=== PATIENT | female | born 2000 | race Caucasian/White ===

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

== ENCOUNTER → 2022-07-12 | Outpatient (CLI) | payer OTHER ==
[2022-07-12 12:33] LABS: Partial Thromboplastin Time 25.2 sec (22.0-30.0); Prothrombin Time 10.6 sec (9.0-12.0)
[2022-07-12 18:22] LABS: Basophils # (A) 0.05 X 10*3/uL (0.00-0.10); Basophils % (A) 0.8 %; Eosinophils # (A) 0.02 X 10*3/uL (0.04-0.35); Eosinophils % (A) 0.3 %; HCT 42.2 % (37.2-46.3); HGB 14.1 g/dL (12.0-15.0); Immature Grans, Automated 0.2 %; Lymphocytes # (A) 1.09 X 10*3/uL (0.90-5.00); Lymphocytes % (A) 18.2 %; MCH 30.9 pg (27.0-32.0); MCHC 33.4 g/dL (32.0-37.0); MCV 92.5 fL (80.0-97.0); Mean Platelet Volume 11.8 fL (9.5-12.2); Monocytes # (A) 1.09 X 10*3/uL (0.20-1.00); Monocytes % (A) 18.2 %; NRBC Per 100 WBC 0 /100 WBCS (0.0-0.0); Neutrophils # (A) 3.73 X 10*3/uL (1.80-7.70); Neutrophils % (A) 62.3 %; Platelet Count 234 X 10*3/uL (140-440); RBC 4.56 X 10*6/uL (4.10-5.20); RDW 13.1 % (11.5-14.5); WBC 5.99 X 10*3/uL (4.50-10.00)
[2022-07-12 18:49] LABS: Erythrocyte Sedimentation Rate 7 mm/Hr (0-20)
[2022-07-12 19:17] LABS: ALT 23 U/L (8-44); AST 21 U/L (13-35); African American GFR (CKD) 122.7 (60.0-200.0); Albumin/Globulin Ratio 1.97 (1.60-3.17); Alkaline Phosphatase 63 U/L (41-126); BUN/Creat Ratio 10.05 Ratio (12.00-20.00); Calcium 10.1 mg/dL (8.7-10.3); Carbon Dioxide 29.7 mmol/L (20.0-27.5); Chloride 104 mmol/L (96-109); Chol/HDL Ratio 2.45 Ratio; Globulin 2.6 g/dL (1.6-3.3); Glucose 84 mg/dL (70-110); LDH 168 U/L (120-246); LDL Cholesterol,Calculated 54.5 mg/dL (0.0-131.0); Non-African American GFR(CKD) 105.9 (60.0-200.0); Potassium 4.5 mmol/L (3.5-5.5); Sodium 143 mmol/L (135-145); Total Protein 7.6 g/dL (6.2-8.2); VLDL Calculation 11.16 mg/dL (5.00-40.00)
== END | disposition home or self-care (01) ==
LOC: LABWHC1 10:31
PROVIDERS: ATTEND Family Medicine
DX: G43.909 Migraine, unspecified, not intractable, without status migrainosus (principal); R29.5 Transient paralysis
CPT/HCPCS: 36415; 80053; 80061; 81241; 83090; 83615; 84146; 85025; 85303; 85610; 85613; 85652; 85730

== ENCOUNTER → 2022-07-13 | Outpatient (CLI) | payer OTHER ==
--- NOTE | 2022-07-14 02:58 | MR ---
EXAMINATION [facility]: [facility] DATE OF EXAM: 07/13/2022 COMPARISON: None HISTORY: Sudden left sided weakness and numbness, involuntary head twitching, seizure and head injury . CONTRAST: Standard multiplanar, multisequence MRI departmental protocol images were obtained without contrast a nd with 4.5 mL intravenous Gadavist gadolinium contrast. Multiplanar multi echo imaging of the brain performed without and with the IV contrast gadolinium the re are MR angiographic images obtained of the neck. FINDINGS: Diffusion images show no evidence of an acute infarct. Ventricles and sulci appear normal. There is n o mass effect or midline shift. No sign of intracranial hemorrhage. No evidence of cerebral edema. Th e calvarium appears normal. The corpus callosum appears normal. Brainstem is intact. No evidence of a posterior fossa mass. Sella turcica appears normal. No evidence of orbital mass. Contrast images show no pathologic intracranial enhancement. There is normal enhancement of the venou s sinuses. Cerebellum appears normal. No evidence of posterior fossa mass. There is normal branching pattern of the great vessels of the aortic arch. There is arterial flow in the subclavian arteries bilaterally. There is arterial flow in the common internal and external carot id arteries bilaterally. There is arterial flow in both vertebral arteries. No evidence of aneurysm o r dissection. No evidence of hemodynamic stenosis. There is wide patency of the carotid artery bifurc ations. IMPRESSION: Normal MRI scan of the brain. Normal MR angiogram of the neck.
== END | disposition home or self-care (01) ==
LOC: RADMRIMAIN 08:09
PROVIDERS: ATTEND Family Medicine
DX: R29.5 Transient paralysis (principal)
CPT/HCPCS: 70549; 70553; A9585

== ENCOUNTER 2023-06-09 08:54 | Day surgery (SDC) | payer OTHER ==
[~2023-06-09 08:54] MED LIST: SODIUM CHLORIDE 0.9% 1,000 ML IV SCH
[2023-06-09 09:11] VITALS: BP 120/83; PULSE 93; RESP 18; TEMP 98
--- NOTE | 2023-06-09 13:45 | P.EPPROC ---
- EP Procedure Note Electrophysiology Procedure Note: Diagnosis Recurrent syncope and dizzy spells for one year Twelve-lead EKG shows sinus rhythm normal ND narrow QRS normal ST segments normal QT interval Tilt table test per protocol Baseline blood pressure 111/67 mmHg Baseline 170 beats a minute Patient was tilted upright at an angle of 70 per protocol immediate increase in heart rate 221 beats a minute and then settled down at around 110 beats a minute No change in blood pressure She felt dizzy off and on in waves. Numbness in the right side of the face. During the tilt she had sudden onset of dizziness and a warm feeling. At that time, heart rate went up 146 beats a minute. Her blood pressure was elevated 176/92 mmHg She felt hot and dizzy off and on At no point did she develop any evidence for neurocardiogenic syncope Impression Normal 12-lead EKG Postural tachycardia syndrome without evidence for secondary neurocardiogenic phenomenon
== END 2023-06-09 11:17 | disposition home or self-care (01) ==
LOC: CATHEP 08:54
PROVIDERS: ATTEND Internal Medicine Clinical Cardiac Electrophysiology
DX: R55 Syncope and collapse (principal); Z79.899 Other long term (current) drug therapy
CPT/HCPCS: 81025; 93660

== ENCOUNTER 2024-08-03 21:27 | Emergency (ER) | payer OTHER ==
--- NOTE | 2024-08-03 21:52 | ED ---
General Adult HPI - General Chief complaint: Syncope Stated complaint: Tachycardia Time Seen by Provider: 08/03/24 21:28 Source: patient Mode of arrival: EMS Limitations: no limitations - History of Present Illness Initial comments: Dictation was produced using [employer] dictation software. please excuse any grammatical, word or spelling errors. Chief Complaint: 23-year-old female with history of POTS presents with presyncope History of Present Illness: Patient is a 23-year-old female had approximately 1 hour prior to arrival experienced presyncopal episode. She states she has a history of POTS. She had a POTS flareup 2 months ago states that today she had a similar event where she stood up quickly. She states she felt a little faint had to lower herself. Patient did not fall or strike her head. Patient states that she feels slightly lightheaded at the bedside. Patient denies any other comorbidities. The ROS documented in this emergency department record has been reviewed and confirmed by me. Those systems with pertinent positive or negative responses have been documented in the HPI. All other systems are other negative and/or n oncontributory. - Related Data Home Medications Medication Instructions Recorded Confirmed Folic Acid 1 mg PO DAILY 06/05/23 06/05/23 Vit B12(Unk) 1 tab PO DAILY 06/05/23 06/05/23 diphenhydrAMINE HCL [Benadryl 25 - 50 mg PO DIRECTED 06/05/23 06/05/23 Allergy] Allergies Allergy/AdvReac Type Severity Reaction Status Date / Time roldan Allergy Swelling Verified 08/03/24 21:34 roldan flavor Allergy Swelling Verified 08/03/24 21:34 egg Allergy Swelling Verified 08/03/24 21:34 gluten Allergy Nausea & Verified 08/03/24 21:34 Vomiting & Diarrhea lactose Allergy Swelling Verified 08/03/24 21:34 latex Allergy Rash/Hives Verified 06/05/23 15:50 orange Allergy Swelling Verified 08/03/24 21:34 orange juice [[place]] Allergy Swelling Verified 08/03/24 21:34 Pepper Allergy Anaphylaxis Verified 08/03/24 21:34 pineapple Allergy Swelling Verified 08/03/24 21:34 rice Allergy Anaphylaxis Verified 08/03/24 21:34 soy Allergy Swelling Verified 08/03/24 21:34 Review of Systems ROS Statement: Those systems with pertinent positive or pertinent negative responses have been documented in the HPI. ROS Other: All systems not noted in ROS Statement are negative. Past Medical History Past Medical History: No Reported History Additional Past Medical History / Comment(s): mulitple food and environmental allergies, POTS, chronic migranes History of Any Multi-Drug Resistant Organisms: None Reported Past Surgical History: No Surgical Hx Reported Past Anesthesia/Blood Transfusion Reactions: No Reported Reaction Past Psychological History: Anxiety, Depression Smoking Status: Never smoker Past Alcohol Use History: None Reported Past Drug Use History: None Reported General Exam - General Exam Comments Initial Comments: PHYSICAL EXAM: General Impression: Alert and oriented x3, not in acute distress HEENT: Normocephalic atraumatic, extra-ocular movements intact, pupils equal and reactive to light bilaterally, mucous membranes moist. Cardiovascular: Heart regular rate and rhythm Chest: Able to complete full sentences, no retractions, no tachypnea Abdomen: abdomen soft, non-tender, non-distended, no organomegaly Musculoskeletal: Pulses present and equal in all extremities, no peripheral edema Motor: no focal deficits noted Neurological: CN II-XII grossly intact, no focal motor or sensory deficits noted Skin: Intact with no visualized rashes Psych: Normal affect and mood Limitations: no limitations Course Vital Signs 08/03/24 08/03/24 08/03/24 21:27 22:06 22:43 Temperature 98.6 F Pulse Rate 105 H 103 H Pulse Rate [ 99 Recreation Coordinator ] Respiratory 16 15 Rate Blood Pressure 113/74 103/71 O2 Sat by Pulse 100 100 Oximetry EKG Findings - EKG Comments: EKG Findings:: My EKG interpretation: Ventricular rate 109, sinus tachycardia,. Interval 116, QRS 104, QTc 377. No HI prolongation, no QTC prolongation, no ST or T-wave changes noted. Overall, this EKG is unremarkable Medical Decision Making - Medical Decision Making Was pt. sent in by a medical professional or institution (, PA, PUBLIC SPACE ATTENDANT, urgent care, hospital, or halfway...) When possible be specific @ -No Did you speak to anyone other than the patient for history (EMS, parent, family, police, friend...)? What history was obtained from this source @ -No Did you review nursing and triage notes (agree or disagree)? Why? @ -I reviewed and agree with nursing and triage notes Were old charts reviewed (outside hosp., previous admission, EMS record, old EKG, old radiological studies, urgent care reports/EKG's, halfway records)? Report findings @ -No old charts were reviewed Differential Diagnosis (chest pain, altered mental status, abdominal pain women, abdominal pain men, vaginal bleeding, musculoskeletal, weakness, fever, dyspnea, syncope, headache, dizziness, GI bleed, back pain, seizure, CVA, palpatations, mental health)? @ -Differential Syncope: Valvular disease, hypertrophic cardiomyopathy, pulmonary embolism, tamponade, tachycardia, bradycardia, [place], hypovolemia, hemorrhage, dissection, anemia, intracranial hemorrhage, seizure, hypoglycemia, carbon monoxide poisoning, this is not meant to be an all-inclusive list. EKG interpreted by me (3pts min.). @ -As above X-rays interpreted by me (1pt min.). @ -None done CT interpreted by me (1pt min.). @ -None done U/S interpreted by me (1pt. min.). @ -None done What testing was considered but not performed or refused? (CT, X-rays, U/S, labs)? Why? @ -None What meds were considered but not given or refused? Why? @ -None Was smoking cessation discussed for >3mins.? @ -No Were there social determinants of health that impacted care today? How? (Homelessness, low income, unemployed, alcoholism, drug addiction, transportation, low edu. Level, literacy, decrease access to med. care, correction, rehab)? @ -No Was there de-escalation of care discussed even if they declined (Discuss DNR or withdrawal of care, Hospice)? DNR status @ -No What co-morbidities impacted this encounter? (DM, HTN, Smoking, COPD, CAD, Cancer, CVA, ARF, Chemo, Hep., AIDS, mental health diagnosis, sleep apnea, morbid obesity)? @ -None Was patient admitted / discharged? Hospital course, mention meds given and route, prescriptions, significant lab abnormalities, going to OR and other pertinent info. @ -23-year-old female presents emergency department with presyncopal symptoms. Vital signs upon arrival are within acceptable limits she has history of POTS. Patient well-appearing at the bedside. She is stable on physical examination. Laboratory evaluation is unremarkable. Troponin is negative. Electrolytes unremarkable. Patient be discharged with instruction to follow-up with primary care doctor observed emergency department for approximately 2 hours. Reevaluated at 11:30 PM [place] stable to condition. Did you discuss the management of the patient with other professionals (professionals i.e. , PA, PUBLIC SPACE ATTENDANT, lab, RT, psych nurse, social media designer, cable television program director, teacher, command and control officer, sample case porter)? Give summary @ -No Was critical care preformed (if so, how long)? @ -No Undiagnosed new problem with uncertain prognosis? @ -No Drug Therapy requiring intensive monitoring for toxicity (Heparin, Nitro, Insulin, Cardizem)? @ -No Were any procedures done? @ -No Diagnosis/symptom? Acute, or Chronic, or Acute on Chronic? Uncomplicated (without systemic symptoms) or Complicated (systemic symptoms)? @ -Presyncope Side effects of treatment? @ -No Exacerbation, Progression, or Severe Exacerbation? @ -No Poses a threat to life or bodily function? How? (Chest pain, [place], [place], pneumonia, PE, COPD, DKA, ARF, appy, cholecystitis, CVA, Diverticulitis, Homicidal, Suicidal, threat to staff... and all critical care pts) @ -No - Lab Data Result diagrams: 08/03/24 21:54 08/03/24 21:54 Lab Results 08/03/24 08/03/24 08/03/24 Range/Units 21:54 21:54 21:54 WBC 8.1 (3.8-10.6) k/uL RBC 3.65 L (3.80-5.40) m/uL Hgb 11.7 (11.4-16.0) gm/dL Hct 35.9 (34.0-46.0) % MCV 98.4 (80.0-100.0) fL MCH 32.0 (25.0-35.0) pg MCHC 32.5 (31.0-37.0) g/dL RDW 12.8 (11.5-15.5) % Plt Count 193 (150-450) k/uL MPV 8.4 Neutrophils % 62 % Lymphocytes % 22 % Monocytes % 12 % Eosinophils % 1 % Basophils % 0 % Neutrophils # 5.0 (1.3-7.7) k/uL Lymphocytes # 1.8 (1.0-4.8) k/uL Monocytes # 1.0 (0-1.0) k/uL Eosinophils # 0.0 (0-0.7) k/uL Basophils # 0.0 (0-0.2) k/uL Sodium 137 (137-145) mmol/L Potassium 3.7 (3.5-5.1) mmol/L Chloride 107 (98-107) mmol/L Carbon Dioxide 25 (22-30) mmol/L Anion Gap 5 mmol/L BUN 7 (7-17) mg/dL Creatinine 0.63 (0.52-1.04) mg/dL Est GFR (CKD-EPI)AfAm >90 (>60 ml/min/1.73 sqM) Est GFR (CKD-EPI)NonAf >90 (>60 ml/min/1.73 sqM) Glucose 89 (74-99) mg/dL Calcium 9.5 (8.4-10.2) mg/dL Magnesium 1.9 (1.6-2.3) mg/dL Troponin I <0.012 (0.000-0.034) ng/mL Disposition Clinical Impression: Pre-syncope Disposition: HOME SELF-CARE Condition: Good Instructions (If sedation given, give patient instructions): Near Syncope (ED) Is patient prescribed a controlled substance at d/c from ED?: No Referrals: Claudia Wills MD [Primary Care Provider] - 1-2 days Time of Disposition: 23:32
[2024-08-03 22:01] LABS: Basophils % (A) 0 %; Eosinophils % (A) 1 %; HCT 35.9 % (34.0-46.0); HGB 11.7 gm/dL (11.4-16.0); Lymphocytes # (A) 1.8 k/uL (1.0-4.8); Lymphocytes % (A) 22 %; MCHC 32.5 g/dL (31.0-37.0); MCV 98.4 fL (80.0-100.0); Mean Platelet Volume 8.4; Monocytes % (A) 12 %; Neutrophils % (A) 62 %; Platelet Count 193 k/uL (150-450); RBC 3.65 m/uL (3.80-5.40); RDW 12.8 % (11.5-15.5); WBC 8.1 k/uL (3.8-10.6)
[2024-08-03 22:09] LABS: African American GFR (CKD) >90 (>60 ml/min/1.73 sqM); Anion Gap 5 mmol/L; Blood Urea Nitrogen 7 mg/dL (7-17); Calcium 9.5 mg/dL (8.4-10.2); Carbon Dioxide 25 mmol/L (22-30); Chloride 107 mmol/L (98-107); Glucose 89 mg/dL (74-99); Magnesium 1.9 mg/dL (1.6-2.3); Non-African American GFR(CKD) >90 (>60 ml/min/1.73 sqM); Potassium 3.7 mmol/L (3.5-5.1); Sodium 137 mmol/L (137-145)
[2024-08-04 00:05] VITALS: BP 103/70; PULSE 96; RESP 18; TEMP 98.2
== END 2024-08-04 00:05 | disposition home or self-care (01) ==
LOC: EC 21:27
CPT/HCPCS: 36415; 80048; 83735; 84484; 85025; 93005; 99284

== ENCOUNTER 2024-08-14 22:57 | Emergency (ER) | payer OTHER ==
[2024-08-14 23:13] LABS: Glucose,Whole Blood 91 mg/dL (70-110)
--- NOTE | 2024-08-14 23:14 | ED ---
Dizziness HPI - General Source: patient, EMS, RN notes reviewed Mode of arrival: EMS Limitations: no limitations <Anayeli Escalante - Last Filed: 08/15/24 04:27> <Akbar Francois - Last Filed: 08/15/24 05:48> - General Chief Complaint: Syncope Stated Complaint: Syncope Time Seen by Provider: 08/14/24 23:13 - History of Present Illness Initial Comments: 23-year-old female presenting with chief complaint of syncopal episode. Patient has history of POTS and states that she felt herself going into a POTS episode tonight. She felt her heart racing and she was having some chest discomfort. States that she normally passes out with these episodes. She is feeling generally weak as well. She admits to some upper abdominal discomfort, particularly in the right upper quadrant. Has been intermittent. No nausea or vomiting. No fevers. No cough, congestion, sore throat. Denies any head injury. No lower extremity swelling or oral contraceptive use. (Anayeli Escalante) - Related Data Home Medications Medication Instructions Recorded Confirmed Folic Acid 1 mg PO DAILY 06/05/23 06/05/23 Vit B12(Unk) 1 tab PO DAILY 06/05/23 06/05/23 diphenhydrAMINE HCL [Benadryl 25 - 50 mg PO DIRECTED 06/05/23 06/05/23 Allergy] Allergies Allergy/AdvReac Type Severity Reaction Status Date / Time roldan Allergy Swelling Verified 08/14/24 23:08 roldan flavor Allergy Swelling Verified 08/14/24 23:08 egg Allergy Swelling Verified 08/14/24 23:08 gluten Allergy Nausea & Verified 08/14/24 23:08 Vomiting & Diarrhea lactose Allergy Swelling Verified 08/14/24 23:08 latex Allergy Rash/Hives Verified 08/14/24 23:08 orange Allergy Swelling Verified 08/14/24 23:08 orange juice [[place]] Allergy Swelling Verified 08/14/24 23:08 Pepper Allergy Anaphylaxis Verified 08/14/24 23:08 pineapple Allergy Swelling Verified 08/14/24 23:08 rice Allergy Anaphylaxis Verified 08/14/24 23:08 soy Allergy Swelling Verified 08/14/24 23:08 Review of Systems ROS Other: All systems not noted in ROS Statement are negative. <Anayeli Escalante - Last Filed: 08/15/24 04:27> ROS Other: All systems not noted in ROS Statement are negative. <Akbar Francois - Last Filed: 08/15/24 05:48> ROS Statement: Those systems with pertinent positive or pertinent negative responses have been documented in the HPI. Past Medical History Past Medical History: No Reported History Additional Past Medical History / Comment(s): mulitple food and environmental allergies, POTS, chronic migranes History of Any Multi-Drug Resistant Organisms: None Reported Past Surgical History: No Surgical Hx Reported Past Anesthesia/Blood Transfusion Reactions: No Reported Reaction Past Psychological History: Anxiety, Depression Smoking Status: Never smoker Past Alcohol Use History: None Reported Past Drug Use History: None Reported <Anayeli Escalante - Last Filed: 08/15/24 04:27> General Exam Limitations: no limitations General appearance: alert, in no apparent distress Head exam: Present: atraumatic, normocephalic, normal inspection Eye exam: Present: normal appearance, EOMI Neck exam: Present: normal inspection. Absent: meningismus Respiratory exam: Present: normal lung sounds bilaterally. Absent: respiratory distress, wheezes, rales, rhonchi, stridor Cardiovascular Exam: Present: normal rhythm, tachycardia, normal heart sounds. Absent: systolic murmur, diastolic murmur, rubs, gallop, clicks GI/Abdominal exam: Present: soft, tenderness. Absent: distended, guarding, rebound, rigid Neurological exam: Present: alert, oriented X3 Psychiatric exam: Present: normal affect, normal mood Skin exam: Present: warm, dry <Anayeli Escalante - Last Filed: 08/15/24 04:27> - General Exam Comments Initial Comments: Visual Physical Exam Vital signs reviewed General: Well-appearing, nontoxic, no acute distress. Head: Normocephalic, atraumatic Eyes: PERRLA, EOMI ENT: Airway patent Chest: Nonlabored breathing Skin: No visual rash, normal skin tone Neuro: Alert and oriented 3 Musculoskeletal: No gross abnormalities (Anayeli Escalante) Course Vital Signs 08/14/24 08/15/24 08/15/24 23:06 02:26 04:00 Temperature 98.2 F Pulse Rate 126 H 92 99 Respiratory 20 18 18 Rate Blood Pressure 110/73 118/85 112/71 O2 Sat by Pulse 100 100 100 Oximetry EKG Findings - EKG Comments: EKG Findings:: Sinus tachycardia with short NV interval. Ventricular rate 101. NV interval 117. QRS 111. QT 346. QTc 404. No ST deviation. <Anayeli Escalante - Last Filed: 08/15/24 04:27> Medical Decision Making - Lab Data Result diagrams: 08/15/24 00:00 08/15/24 00:00 <Anayeli Escalante - Last Filed: 08/15/24 04:27> - Lab Data Result diagrams: 08/15/24 00:00 08/15/24 00:00 <KeltonradhaAkbar - Last Filed: 08/15/24 05:48> - Medical Decision Making I performed the quick note portion of this visit, electronically signed Anayeli Escalante PA-C Was pt. sent in by a medical professional or institution (TALYA Holder, TIRE RETREADER, urgent care, hospital, or shelter...) When possible be specific @ -[No] Did you speak to anyone other than the patient for history (EMS, parent, family, police, friend...)? What history was obtained from this source @ -No Did you review nursing and triage notes (agree or disagree)? Why? @ -I reviewed and agree with nursing and triage notes Were old charts reviewed (outside hosp., previous admission, EMS record, old EKG, old radiological studies, urgent care reports/EKG's, shelter records)? Report findings @ -No old charts were reviewed Differential Diagnosis (chest pain, altered mental status, abdominal pain women, abdominal pain men, vaginal bleeding, weakness, fever, dyspnea, syncope, headache, dizziness, GI bleed, back pain, seizure, CVA, palpatations, mental health, musculoskeletal)? @ -[facility] Differential Chest Pain: Stable Angina, Unstable Angina, STEMI, NSTEMI Aortic Dissection, Pneumothorax, Musculoskeletal, Esophageal Spasm GERD, Cholecystitis, Pancreatitis, Zoster This is not meant to be an all-inclusive list. EKG interpreted by me (3pts min.). @ -As above X-rays interpreted by me (1pt min.). @ -Chest x-ray shows no acute process CT interpreted by me (1pt min.). @ -None done U/S interpreted by me (1pt. min.). @ -None done What testing was considered but not performed or refused? (CT, X-rays, U/S, labs)? Why? @ -None What meds were considered but not given or refused? Why? @ -None Did you discuss the management of the patient with other professionals (professionals i.e. , PA, TIRE RETREADER, lab, RT, psych nurse, case management social worker, fence installer foreman, t eacher, police commanding officer, rn field case manager)? Give summary @ -No Was smoking cessation discussed for >3mins.? @ -No Was critical care preformed (if so, how long)? @ -No Were there social determinants of health that impacted care today? How? (Homelessness, low income, unemployed, alcoholism, drug addiction, transportation, low edu. Level, literacy, decrease access to med. care, [facility], rehab)? @ -No Was there de-escalation of care discussed even if they declined (Discuss DNR or withdrawal of care, Hospice)? DNR status @ -No What co-morbidities impacted this encounter? (DM, HTN, Smoking, COPD, CAD, Cancer, CVA, ARF, Chemo, Hep., AIDS, mental health diagnosis, sleep apnea, morbid obesity)? @ -None Was patient admitted / discharged? Hospital course, mention meds given and route, prescriptions, significant lab abnormalities, going to OR and other pertinent info. @ -23-year-old female presenting with chief complaint of chest pain. States that she was having a POTS episode tonight. Workup is initiated in triage, patient is later brought back to a room and evaluated by myself. No leukocytos is or anemia. Lipase WNL. Negative hCG. Chest x-ray shows no acute process. Bilirubin 2.6 AST 59 ALT [address] is ordered and pending. Patient signed out to my attending Dr. Francois Undiagnosed new problem with uncertain prognosis? @ -No Drug Therapy requiring intensive monitoring for toxicity (Heparin, Nitro, Insulin, Cardizem)? @ -No Were any procedures done? @ -No Diagnosis/symptom? @ -Default Acute, or Chronic, or Acute on Chronic? @ -Default Uncomplicated (without systemic symptoms) or Complicated (systemic symptoms)? @ -Default Side effects of treatment? @ -No Exacerbation, Progression, or Severe Exacerbation? @ -No Poses a threat to life or bodily function? How? (Chest pain, [place], [place], pneumonia, PE, COPD, DKA, ARF, appy, cholecystitis, CVA, Diverticulitis, Homicidal, Suicidal, threat to staff... and all critical care pts) @ -No (Anayeli Escalante) - Lab Data Lab Results 08/14/24 08/15/24 08/15/24 Range/Units 23:11 00:00 00:00 WBC 10.0 (3.8-10.6) k/uL RBC 3.85 (3.80-5.40) m/uL Hgb 12.5 (11.4-16.0) gm/dL Hct 37.6 (34.0-46.0) % MCV 97.6 (80.0-100.0) fL MCH 32.3 (25.0-35.0) pg MCHC 33.1 (31.0-37.0) g/dL RDW 12.7 (11.5-15.5) % Plt Count 211 (150-450) k/uL MPV 8.8 Neutrophils % 70 % Lymphocytes % 13 % Monocytes % 14 % Eosinophils % 0 % Basophils % 0 % Neutrophils # 7.0 (1.3-7.7) k/uL Lymphocytes # 1.3 (1.0-4.8) k/uL Monocytes # 1.4 H (0-1.0) k/uL Eosinophils # 0.0 (0-0.7) k/uL Basophils # 0.0 (0-0.2) k/uL PT 11.2 (10.0-12.5) sec INR 1.0 (<1.2) APTT 23.8 (22.0-30.0) sec Sodium (137-145) mmol/L Potassium (3.5-5.1) mmol/L Chloride (98-107) mmol/L Carbon Dioxide (22-30) mmol/L Anion Gap mmol/L BUN (7-17) mg/dL Creatinine (0.52-1.04) mg/dL Est GFR (CKD-EPI)AfAm (>60 ml/min/1.73 sqM) Est GFR (CKD-EPI)NonAf (>60 ml/min/1.73 sqM) Glucose (74-99) mg/dL POC Glucose (mg/dL) 91 (70-110) mg/dL POC Glu [employer] Tutor ID Toure Matty Calcium (8.4-10.2) mg/dL Magnesium (1.6-2.3) mg/dL Total Bilirubin (0.2-1.3) mg/dL AST (14-36) U/L ALT (4-34) U/L Alkaline Phosphatase (38-126) U/L Troponin I (0.000-0.034) ng/mL Total Protein (6.3-8.2) g/dL Albumin (3.5-5.0) g/dL Lipase (23-300) U/L HCG, Qual 08/15/24 08/15/24 08/15/24 Range/Units 00:00 00:00 02:35 WBC (3.8-10.6) k/uL RBC (3.80-5.40) m/uL Hgb (11.4-16.0) gm/dL Hct (34.0-46.0) % MCV (80.0-100.0) fL MCH (25.0-35.0) pg MCHC (31.0-37.0) g/dL RDW (11.5-15.5) % Plt Count (150-450) k/uL MPV Neutrophils % % Lymphocytes % % Monocytes % % Eosinophils % % Basophils % % Neutrophils # (1.3-7.7) k/uL Lymphocytes # (1.0-4.8) k/uL Monocytes # (0-1.0) k/uL Eosinophils # (0-0.7) k/uL Basophils # (0-0.2) k/uL PT (10.0-12.5) sec INR (<1.2) APTT (22.0-30.0) sec Sodium 138 (137-145) mmol/L Potassium 3.6 (3.5-5.1) mmol/L Chloride 106 (98-107) mmol/L Carbon Dioxide 22 (22-30) mmol/L Anion Gap 10 mmol/L BUN 5 L (7-17) mg/dL Creatinine 0.64 (0.52-1.04) mg/dL Est GFR (CKD-EPI)AfAm >90 (>60 ml/min/1.73 sqM) Est GFR (CKD-EPI)NonAf >90 (>60 ml/min/1.73 sqM) Glucose 75 (74-99) mg/dL POC Glucose (mg/dL) (70-110) mg/dL POC Glu [employer] Tutor ID Calcium 9.2 (8.4-10.2) mg/dL Magnesium 1.9 (1.6-2.3) mg/dL Total Bilirubin 2.6 H (0.2-1.3) mg/dL AST 59 H (14-36) U/L ALT 128 H (4-34) U/L Alkaline Phosphatase 134 H (38-126) U/L Troponin I <0.012 (0.000-0.034) ng/mL Total Protein 6.7 (6.3-8.2) g/dL Albumin 4.5 (3.5-5.0) g/dL Lipase 53 (23-300) U/L HCG, Qual Not Detected Disposition <Anayeli Escalante - Last Filed: 08/15/24 04:27> Is patient prescribed a controlled substance at d/c from ED?: No <Akbar Francois - Last Filed: 08/15/24 05:48> Clinical Impression: Syncope, Biliary colic Disposition: HOME SELF-CARE Condition: Good Instructions (If sedation given, give patient instructions): Biliary Colic ( ED), Syncope (ED) Referrals: Claudia Wills MD [Primary Care Provider] - 1-2 days Terrell Fraire MD [STAFF PHYSICIAN] - 1-2 days
--- NOTE | 2024-08-15 00:04 | XR ---
EXAMINATION TYPE: XR chest 2V DATE OF EXAM: 08/14/2024 COMPARISON: NONE HISTORY: Syncope. TECHNIQUE: Frontal and lateral views of the chest are obtained. FINDINGS: There is no focal air space opacity, pleural effusion, or pneumothorax seen. The cardiac silhouette size is within normal limits. The osseous structures are intact. IMPRESSION: No acute cardiopulmonary process. [facility], , 08/15/2024 12:01 AM
[2024-08-15 01:26] LABS: Basophils % (A) 0 %; Eosinophils % (A) 0 %; HCT 37.6 % (34.0-46.0); HGB 12.5 gm/dL (11.4-16.0); Lymphocytes # (A) 1.3 k/uL (1.0-4.8); Lymphocytes % (A) 13 %; MCH 32.3 pg (25.0-35.0); MCHC 33.1 g/dL (31.0-37.0); MCV 97.6 fL (80.0-100.0); Mean Platelet Volume 8.8; Monocytes # (A) 1.4 k/uL (0-1.0); Monocytes % (A) 14 %; Neutrophils % (A) 70 %; Platelet Count 211 k/uL (150-450); RBC 3.85 m/uL (3.80-5.40); RDW 12.7 % (11.5-15.5)
[2024-08-15 01:46] LABS: Partial Thromboplastin Time 23.8 sec (22.0-30.0); Prothrombin Time 11.2 sec (10.0-12.5)
[2024-08-15 01:51] LABS: ALT 128 U/L (4-34); AST 59 U/L (14-36); African American GFR (CKD) >90 (>60 ml/min/1.73 sqM); Albumin 4.5 g/dL (3.5-5.0); Alkaline Phosphatase 134 U/L (38-126); Anion Gap 10 mmol/L; Blood Urea Nitrogen 5 mg/dL (7-17); Calcium 9.2 mg/dL (8.4-10.2); Carbon Dioxide 22 mmol/L (22-30); Chloride 106 mmol/L (98-107); Glucose 75 mg/dL (74-99); Magnesium 1.9 mg/dL (1.6-2.3); Non-African American GFR(CKD) >90 (>60 ml/min/1.73 sqM); Potassium 3.6 mmol/L (3.5-5.1); Sodium 138 mmol/L (137-145); Total Bilirubin 2.6 mg/dL (0.2-1.3); Total Protein 6.7 g/dL (6.3-8.2)
[2024-08-15] MEDS: SODIUM CHLORIDE 0.9% 2,000 ML IV ONE (02:34)
[2024-08-15 02:45] VITALS: RESP 18
[2024-08-15 03:10] LABS: Lipase 53 U/L (23-300)
[2024-08-15 03:19] LABS: HCG,Qualitative Serum Not Detected
--- NOTE | 2024-08-15 05:01 | CT ---
EXAMINATION TYPE: CT abdomen pelvis w con DATE OF EXAM: 08/15/2024 HISTORY: Patient has been having syncopal episodes. RUQ pain. CT DLP: 468.0mGycm Automated Exposure Control for Dose Reduction was Utilized. CONTRAST: CT scan of the abdomen and pelvis is performed with IV Contrast, patient injected with 100 mL of Isov ue 300. COMPARISON: None. FINDINGS: LUNG BASES: No significant abnormality is appreciated. LIVER/GB: No CT dense intraluminal gallstones. No biliary dilatation. PANCREAS: No significant abnormality is seen. SPLEEN: No significant abnormality is seen. ADRENALS: No significant abnormality is seen. KIDNEYS: Incidental 1.0 cm thin-walled cyst upper pole of the right kidney delayed axial image 24. Sy mmetric cortical medullary uptake and excretion without hydronephrosis seen bilaterally. Subcentimete r low-density lesion lower pole left kidney on image 51 is too small to further characterize but pres umably benign BOWEL: No abnormal small or large bowel dilatation. UTERUS/ADNEXA: Anteverted uterus projects to right of midline. There is 3.3 x 3.0 cm thin-walled cyst or cystic lesion in the left ovary assessment 65. LYMPH NODES: No greater than 1cm abdominal or pelvic lymph nodes are appreciated. OSSEOUS STRUCTURES: No significant abnormality is seen. OTHER: No significant additional abnormality is seen. IMPRESSION: No significant acute finding is seen to account for patient's clinical symptoms of right upper quadrant abdominal pain. [facility], , 08/15/2024 4:58 AM
[2024-08-15 05:58] VITALS: BP 121/71; PULSE 81; TEMP 98.4
== END 2024-08-15 05:58 | disposition home or self-care (01) ==
LOC: EC 22:57
CPT/HCPCS: 36415; 71046; 74177; 80053; 83690; 83735; 84484; 84703; 85025; 85610; 85730; 93005; 96360; 96361; 99285

== ENCOUNTER 2024-09-13 23:06 | Emergency (ER) | payer OTHER ==
[2024-09-13 23:12] VITALS: TEMP 97.9
[2024-09-14] MEDS: SODIUM CHLORIDE 0.9% 1,000 ML IV ONE (00:06)
[2024-09-14] MEDS: KETOROLAC 15 MG/ML 1 ML VIAL IVP STA (00:09)
--- NOTE | 2024-09-14 01:21 | ED ---
Headache HPI - General Chief Complaint: Headache Stated Complaint: headache Time Seen by Provider: 09/13/24 23:28 Mode of arrival: EMS Limitations: no limitations - History of Present Illness Initial Comments: 23-year-old female with history of POTS presenting with chief complaint of headache. Patient states that she was having a POTS episode when she developed a headache on the right side of her head. She does have history of migraines. She is having some associated blurry vision. No nausea or vomiting. She was having some dizziness. No chest pain or difficulty breathing. No neck pain or radiculopathy. No fevers or chills. No URI-like symptoms. - Related Data Home Medications Medication Instructions Recorded Confirmed Folic Acid 1 mg PO DAILY 06/05/23 06/05/23 Vit B12(Unk) 1 tab PO DAILY 06/05/23 06/05/23 diphenhydrAMINE HCL [Benadryl 25 - 50 mg PO DIRECTED 06/05/23 06/05/23 Allergy] Allergies Allergy/AdvReac Type Severity Reaction Status Date / Time roldan Allergy Swelling Verified 09/13/24 23:12 roldan flavor Allergy Swelling Verified 09/13/24 23:12 egg Allergy Swelling Verified 09/13/24 23:12 fludrocortisone Allergy Swelling Verified 09/13/24 23:12 gluten Allergy Nausea & Verified 09/13/24 23:12 Vomiting & Diarrhea lactose Allergy Swelling Verified 09/13/24 23:12 latex Allergy Rash/Hives Verified 09/13/24 23:12 orange Allergy Swelling Verified 09/13/24 23:12 orange juice [[place]] Allergy Swelling Verified 09/13/24 23:12 Pepper Allergy Anaphylaxis Verified 09/13/24 23:12 pineapple Allergy Swelling Verified 09/13/24 23:12 rice Allergy Anaphylaxis Verified 09/13/24 23:12 soy Allergy Swelling Verified 09/13/24 23:12 Review of Systems ROS Statement: Those systems with pertinent positive or pertinent negative responses have been documented in the HPI. ROS Other: All systems not noted in ROS Statement are negative. Past Medical History Past Medical History: No Reported History Additional Past Medical History / Comment(s): mulitple food and environmental allergies, POTS, chronic migranes History of Any Multi-Drug Resistant Organisms: None Reported Past Surgical History: No Surgical Hx Reported Past Anesthesia/Blood Transfusion Reactions: No Reported Reaction Past Psychological History: Anxiety, Depression Smoking Status: Never smoker Past Alcohol Use History: None Reported Past Drug Use History: None Reported General Exam Limitations: no limitations General appearance: alert, in no apparent distress Head exam: Present: atraumatic, normocephalic, normal inspection Eye exam: Present: normal appearance, PERRL, EOMI Pupils: Present: normal accommodation Neck exam: Present: normal inspection, full ROM. Absent: meningismus Respiratory exam: Present: normal lung sounds bilaterally. Absent: respiratory distress, wheezes, rales, rhonchi, stridor Cardiovascular Exam: Present: regular rate, normal rhythm, normal heart sounds. Absent: systolic murmur, diastolic murmur, rubs, gallop, clicks Extremities exam: Present: normal inspection Neurological exam: Present: alert, oriented X3 Expanded Patient oriented to: Present: person, place, time Speech: Present: fluid speech Cranial nerves: EOM's Intact: Normal, Tongue Deviation: Normal, Facial Sens ation: Normal Cerebellar function: Finger to Nose: Normal, Heel to Amador: Normal Sensory exam: Upper Extremity Light Touch: Normal, Lower Extremity Light Touch: Normal Motor strength exam: RUE: 5, LUE: 5, RLE: 5, LLE: 5 Eye Response: (4) open spontaneously Motor Response: (6) obeys commands Verbal Response: (5) oriented Blanca Total: 15 Psychiatric exam: Present: normal affect, normal mood Skin exam: Present: warm, dry Course Vital Signs 09/13/24 09/14/24 23:10 01:34 Temperature 97.9 F Pulse Rate 89 85 Respiratory 16 18 Rate Blood Pressure 102/72 94/60 O2 Sat by Pulse 97 99 Oximetry Medical Decision Making - Medical Decision Making Was pt. sent in by a medical professional or institution (, PA, LEACH RUNNER, urgent care, hospital, or assisted...) When possible be specific @ -No Did you speak to anyone other than the patient for history (EMS, parent, family, police, friend...)? What history was obtained from this source @ -No Did you review nursing and triage notes (agree or disagree)? Why? @ -I reviewed and agree with nursing and triage notes Were old charts reviewed (outside hosp., previous admission, EMS record, old EKG, old radiological studies, urgent care reports/EKG's, assisted records)? Report findings @ -No old charts were reviewed Differential Diagnosis (chest pain, altered mental status, abdominal pain women, abdominal pain men, vaginal bleeding, weakness, fever, dyspnea, syncope, headache, dizziness, GI bleed, back pain, seizure, CVA, palpatations, mental health, musculoskeletal)? @ -[facility] Differential Headache: Migraine, tension, cluster, carbon monoxide, central venous thrombosis, pension karma temporal arteritis, acute closure glaucoma, intercranial hemorrhage, mastoiditis, sinusitis, head injury this is not meant to be an all-inclusive list. EKG interpreted by me (3pts min.). @ -As above X-rays interpreted by me (1pt min.). @ -None done CT interpreted by me (1pt min.). @ -None done U/S interpreted by me (1pt. min.). @ -None done What testing was considered but not performed or refused? (CT, X-rays, U/S, labs)? Why? @ -CT considered, however the patient has no focal neurological deficits and has history of migraines. I believe the risks of radiation exposure outweigh the benefit. What meds were considered but not given or refused? Why? @ -None Did you discuss the management of the patient with other professionals (professionals i.e. , PA, LEACH RUNNER, lab, RT, psych nurse, social director, ethics manager, teacher, wildlife officer, spring encaser)? Give summary @ -No Was smoking cessation discussed for >3mins.? @ -No Was critical care preformed (if so, how long)? @ -No Were there social determinants of health that impacted care today? How? (Homelessness, low income, unemployed, alcoholism, drug addiction, transportation, low edu. Level, literacy, decrease access to med. care, skilled nursing, rehab)? @ -No Was there de-escalation of care discussed even if they declined (Discuss DNR or withdrawal of care, Hospice)? DNR status @ -No What co-morbidities impacted this encounter? (DM, HTN, Smoking, COPD, CAD, Cancer, CVA, ARF, Chemo, Hep., AIDS, mental health diagnosis, sleep apnea, morbid obesity)? @ -None Was patient admitted / discharged? Hospital course, mention meds given and route, prescriptions, significant lab abnormalities, going to OR and other pertinent info. @ -23-year-old female with history of POTS and migraines presenting with chief complaint of migraine. History and physical examination are conducted. No focal neurological deficits. Patient is treated with Toradol and IV fluids. On reassessment she reports resolution of the migraine. She is resting comfortably showing no acute signs of distress. Discharged. Follow-up with PCP. Report back to ER with any new or worsening symptoms. Discussed return parameters and answered all questions. Patient conveyed verbal understanding and agreed to the plan. I discussed this case in detail with my attending Dr. Sweet Undiagnosed new problem with uncertain prognosis? @ -No Drug Therapy requiring intensive monitoring for toxicity (Heparin, Nitro, Insulin, Cardizem)? @ -No Were any procedures done? @ -No Diagnosis/symptom? @ -Migraine Acute, or Chronic, or Acute on Chronic? @ -Acute Uncomplicated (without systemic symptoms) or Complicated (systemic symptoms)? @ -Uncomplicated Side effects of treatment? @ -No Exacerbation, Progression, or Severe Exacerbation? @ -No Poses a threat to life or bodily function? How? (Chest pain, [place], [place], pneumonia, PE, COPD, DKA, ARF, appy, cholecystitis, CVA, Diverticulitis, Homicidal, Suicidal, threat to staff... and all critical care pts) @ -Low likelihood Disposition Clinical Impression: Migraine headache Disposition: HOME SELF-CARE Condition: Good Instructions (If sedation given, give patient instructions): Migraine Headache (ED) Additional Instructions: Follow-up with PCP. Report back to ER with any new or worsening symptoms. Is patient prescribed a controlled substance at d/c from ED?: No Referrals: Claudia Wills MD [Primary Care Provider] - 1-2 days Time of Disposition: 01:20
[2024-09-14 01:36] VITALS: BP 94/60; PULSE 85; RESP 18
== END 2024-09-14 01:34 | disposition home or self-care (01) ==
LOC: EC 23:06
DX: G43.909 Migraine, unspecified, not intractable, without status migrainosus (principal); Z91.040 Latex allergy status; Z91.018 Allergy to other foods; Z91.011 Allergy to milk products
CPT/HCPCS: 99284; 96374; 96361; J1885

== ENCOUNTER 2024-09-19 03:47 | Emergency (ER) | payer OTHER ==
[2024-09-19 03:54] VITALS: TEMP 98.3
--- NOTE | 2024-09-19 03:56 | ED ---
General Adult HPI - General Chief complaint: Recheck/Abnormal Lab/Rx Stated complaint: Pain Time Seen by Provider: 09/19/24 03:56 Source: patient, EMS Mode of arrival: EMS - History of Present Illness Initial comments: Patient is a 23-year-old female presents to the emergency department today via ambulance for evaluation of vaginal pain. Patient reports that she noted some painful swelling in the vagina and the right labia minora for the past 2 days. Patient reports pain with standing or walking. Patient reports she is not sexually active has never been sexually active has no concern for sexually transmitted infections or . - Related Data Home Medications Medication Instructions Recorded Confirmed Folic Acid 1 mg PO DAILY 06/05/23 06/05/23 Vit B12(Unk) 1 tab PO DAILY 06/05/23 06/05/23 diphenhydrAMINE HCL [Benadryl 25 - 50 mg PO DIRECTED 06/05/23 06/05/23 Allergy] Allergies Allergy/AdvReac Type Severity Reaction Status Date / Time roldan Allergy Swelling Verified 09/19/24 03:54 roldan flavor Allergy Swelling Verified 09/19/24 03:54 egg Allergy Swelling Verified 09/19/24 03:54 fludrocortisone Allergy Swelling Verified 09/19/24 03:54 gluten Allergy Nausea & Verified 09/19/24 03:54 Vomiting & Diarrhea lactose Allergy Swelling Verified 09/19/24 03:54 latex Allergy Rash/Hives Verified 09/19/24 03:54 orange Allergy Swelling Verified 09/19/24 03:54 orange juice [[place]] Allergy Swelling Verified 09/19/24 03:54 Pepper Allergy Anaphylaxis Verified 09/19/24 03:54 pineapple Allergy Swelling Verified 09/19/24 03:54 rice Allergy Anaphylaxis Verified 09/19/24 03:54 soy Allergy Swelling Verified 09/19/24 03:54 Review of Systems ROS Statement: Those systems with pertinent positive or pertinent negative responses have been documented in the HPI. ROS Other: All systems not noted in ROS Statement are negative. Past Medical History Past Medical History: No Reported History Additional Past Medical History / Comment(s): mulitple food and environmental allergies, POTS, chronic migranes History of Any Multi-Drug Resistant Organisms: None Reported Past Surgical History: No Surgical Hx Reported Past Anesthesia/Blood Transfusion Reactions: No Reported Reaction Past Psychological History: Anxiety, Depression Smoking Status: Never smoker Past Alcohol Use History: None Reported Past Drug Use History: None Reported General Exam - General Exam Comments Initial Comments: Physical Exam GENERAL: Patient is well-developed and well-nourished. Patient is nontoxic and well-hydrated and is in no distress. HENT: Normocephalic, Atraumatic. EYES: PERRL, EOMI PULMONARY: Unlabored respirations. CARDIOVASCULAR: RRR Warm and well perfused extremities ABDOMEN: Non-distended SKIN: No rashes or bruising : External exam reveals the right labia significantly swollen and edematous there is an area of fluctuance near the vaginal introitus consistent with a Bartholin gland abscess NEUROLOGIC: Alert and oriented Normal speech MUSCULOSKELETAL: Moving all extremities with no apparent injury PSYCHIATRIC: Appropriate situational anxiety Course Vital Signs 09/19/24 09/19/24 03:50 05:34 Temperature 98.3 F Pulse Rate 114 H 90 Respiratory 18 15 Rate Blood Pressure 116/84 110/83 O2 Sat by Pulse 100 98 Oximetry Medical Decision Making - Medical Decision Making Was pt. sent in by a medical professional or institution (TALYA Holder, KILN REPAIRER, urgent care, hospital, or long term...) When possible be specific @ -No Did you speak to anyone other than the patient for history (EMS, parent, family, police, friend...)? What history was obtained from this source @ -No Did you review nursing and triage notes (agree or disagree)? Why? @ -I reviewed and agree with nursing and triage notes Were old charts reviewed (outside hosp., previous admission, EMS record, old EKG, old radiological studies, urgent care reports/EKG's, long term records)? Report findings @ -No old charts were reviewed Differential Diagnosis (chest pain, altered mental status, abdominal pain women, abdominal pain men, vaginal bleeding, weakness, fever, dyspnea, syncope, headache, dizziness, GI bleed, back pain, seizure, CVA, palpatations, mental health)? @ -Differential includes Bartholin gland abscess, cellulitis, abscess of the skin or thigh seroma, hematoma EKG interpreted by me (3pts min.). @ -As above X-rays interpreted by me (1pt min.). @ -None done CT interpreted by me (1pt min.). @ -None done U/S interpreted by me (1pt. min.). @ -None done What testing was considered but not performed or refused? (CT, X-rays, U/S, labs)? Why? @ -None What meds were considered but not given or refused? Why? @ -None Did you discuss the management of the patient with other professionals (professionals i.e. , PA, KILN REPAIRER, lab, RT, psych nurse, social secretary, cheese processor, teacher, training and development officer, leather case finisher)? Give summary @ -No Was smoking cessation discussed for >3mins.? @ -No Was critical care preformed (if so, how long)? @ -No Were there social determinants of health that impacted care today? How? (Homelessness, low income, unemployed, alcoholism, drug addiction, transportation, low edu. Level, literacy, decrease access to med. care, custodial, rehab)? @ -No Was there de-escalation of care discussed even if they declined (Discuss DNR or withdrawal of care, Hospice)? DNR status @ -No What co-morbidities impacted this encounter? (DM, HTN, Smoking, COPD, CAD, Cancer, CVA, ARF, Chemo, Hep., AIDS, mental health diagnosis, sleep apnea, morbid obesity)? @ -None Was patient admitted / discharged? Hospital course, mention meds given and r oute, prescriptions, significant lab abnormalities, going to OR and other pertinent info. @ -Discharged The patient was seen and evaluated history is obtained from patient physical exam is consistent with a Bartholin gland abscess unfortunately the patient has an allergy to latex therefore cannot have a standard Martino catheter placed, I&D was performed and iodoform packing was placed. Wound care was discussed with the patient and she was advised to call gynecology on Friday for follow-up. Have any significant surrounding erythema or signs of cellulitis there is no indication for oral antibiotic therapy at this time. Undiagnosed new problem with uncertain prognosis? @ -No Drug Therapy requiring intensive monitoring for toxicity (Heparin, Nitro, Insulin, Cardizem)? @ -No Were any procedures done? @ -No Diagnosis/symptom? @ -Bartholin gland abscess Acute, or Chronic, or Acute on Chronic? @ -Acute Uncomplicated (without systemic symptoms) or Complicated (systemic symptoms)? @ -Default Side effects of treatment? @ -No Exacerbation, Progression, or Severe Exacerbation? @ -No Poses a threat to life or bodily function? How? (Chest pain, [place], [place], pneumonia, PE, COPD, DKA, ARF, appy, cholecystitis, CVA, Diverticulitis, Homicidal, Suicidal, threat to staff... and all critical care pts) @ -No - Lab Data Lab Results 09/19/24 Range/Units 04:12 Urine Color Colorless Urine Appearance Clear (Clear) Urine pH 7.0 (5.0-8.0) Ur Specific [place] 1.001 (1.001-1.035) Urine Protein Negative (Negative) Urine Glucose (UA) Negative (Negative) Urine Ketones Negative (Negative) Urine Blood Negative (Negative) Urine Nitrite Negative (Negative) Urine Bilirubin Negative (Negative) Urine Urobilinogen <2.0 (<2.0) mg/dL Ur Leukocyte Esterase Small H (Negative) Urine WBC 2 (0-5) /hpf Disposition Clinical Impression: Bartholin's gland abscess Disposition: HOME SELF-CARE Condition: Stable Is patient prescribed a controlled substance at d/c from ED?: No Referrals: Claudia Wills MD [Primary Care Provider] - 1-2 days Carmen Purcell MD [STAFF PHYSICIAN] - 1-2 days
[2024-09-19 04:31] LABS: Appearance,Urine Clear (Clear); Bilirubin,Urine Negative (Negative); Blood,Urine Negative (Negative); Color,Urine Colorless; Glucose,Urine (UA) Negative (Negative); Ketones,Urine Negative (Negative); Leukocyte Esterase,Urine Small (Negative); Nitrite,Urine Negative (Negative); Protein,Urine Negative (Negative); Specific Gravity,Urine 1.001 (1.001-1.035); Urobilinogen,Urine <2.0 mg/dL (<2.0); WBC,Urine 2 /hpf (0-5)
[2024-09-19] MEDS: LIDOCAINE 1% INJ 10MG/ML (20 ML MDV) SQ ONE (05:25)
[2024-09-19 05:36] VITALS: BP 110/83; PULSE 90; RESP 15
== END 2024-09-19 05:35 | disposition home or self-care (01) ==
LOC: EC 03:47
DX: N75.1 Abscess of Bartholin's gland (principal); Z91.018 Allergy to other foods; Z91.012 Allergy to eggs; Z91.011 Allergy to milk products; Z91.040 Latex allergy status; Z88.8 Allergy status to other drugs, medicaments and biological substances
CPT/HCPCS: 99284; 81001; 99283; 56420; J2003

== ENCOUNTER 2024-09-19 11:17 | Emergency (ER) | payer OTHER ==
[2024-09-19 11:24] VITALS: BP 119/82; PULSE 105; RESP 18; TEMP 98.8
--- NOTE | 2024-09-19 11:35 | ED ---
General Adult HPI - General Chief complaint: Nausea/Vomiting/Diarrhea Stated complaint: Nausea Time Seen by Provider: 09/19/24 11:23 Source: patient, EMS, RN notes reviewed Mode of arrival: EMS Limitations: no limitations - History of Present Illness Initial comments: Patient is a 23-year-old female presenting to the emergency department with concern for nausea. Patient had Bartholin gland abscess drained earlier today. Patient does have some discomfort and request pain medication. Patient also has nausea. Patient also has history of POTS and does have syncopal episodes daily. Patient had an episode today. Patient admits to feeling anxious. - Related Data Home Medications Medication Instructions Recorded Confirmed Folic Acid 1 mg PO DAILY 06/05/23 06/05/23 Vit B12(Unk) 1 tab PO DAILY 06/05/23 06/05/23 diphenhydrAMINE HCL [Benadryl 25 - 50 mg PO DIRECTED 06/05/23 06/05/23 Allergy] Allergies Allergy/AdvReac Type Severity Reaction Status Date / Time roldan Allergy Swelling Verified 09/19/24 03:54 roldan flavor Allergy Swelling Verified 09/19/24 03:54 egg Allergy Swelling Verified 09/19/24 03:54 fludrocortisone Allergy Swelling Verified 09/19/24 03:54 gluten Allergy Nausea & Verified 09/19/24 03:54 Vomiting & Diarrhea lactose Allergy Swelling Verified 09/19/24 03:54 latex Allergy Rash/Hives Verified 09/19/24 03:54 orange Allergy Swelling Verified 09/19/24 03:54 orange juice [Wanda] Allergy Swelling Verified 09/19/24 03:54 Pepper Allergy Anaphylaxis Verified 09/19/24 03:54 pineapple Allergy Swelling Verified 09/19/24 03:54 rice Allergy Anaphylaxis Verified 09/19/24 03:54 soy Allergy Swelling Verified 09/19/24 03:54 Review of Systems ROS Statement: Those systems with pertinent positive or pertinent negative responses have been documented in the HPI. ROS Other: All systems not noted in ROS Statement are negative. Constitutional: Denies: fever Eyes: Denies: eye pain ENT: Denies: ear pain Respiratory: Denies: dyspnea Cardiovascular: Denies: chest pain Endocrine: Denies: fatigue Genitourinary: Reports: as per HPI Musculoskeletal: Denies: back pain Neurological: Denies: headache, weakness Past Medical History Past Medical History: No Reported History Additional Past Medical History / Comment(s): [facility] [place] environmental al lergies, YEAGER, chronic migranes History of Any Multi-Drug Resistant Organisms: None Reported Past Surgical History: No Surgical Hx Reported Past Anesthesia/Blood Transfusion Reactions: No Reported Reaction Past Psychological History: Anxiety, Depression Smoking Status: Never smoker Past Alcohol Use History: None Reported Past Drug Use History: None Reported General Exam Limitations: no limitations General appearance: alert, in no apparent distress Head exam: Present: normocephalic Eye exam: Present: normal appearance, PERRL, EOMI ENT exam: Present: normal oropharynx Neck exam: Present: normal inspection. Absent: tenderness Respiratory exam: Present: normal lung sounds bilaterally Cardiovascular Exam: Present: regular rate, normal rhythm, normal heart sounds Expanded Peripheral pulses: 2+: Radial (R), Radial (L) GI/Abdominal exam: Present: soft. Absent: tenderness Extremities exam: Present: normal inspection Neurological exam: Present: alert Psychiatric exam: Present: normal affect, normal mood Skin exam: Present: normal color Course Vital Signs 09/19/24 11:19 Temperature 98.8 F Pulse Rate 105 H Respiratory 18 Rate Blood Pressure 119/82 O2 Sat by Pulse 100 Oximetry EKG Findings - EKG Results: EKG: interpreted by ERMD, sinus rhythm, normal axis, normal QRS, normal ST/T Medical Decision Making - Medical Decision Making Was pt. sent in by a medical professional or institution (Dr. PA, LINE TESTER, urgent care, hospital, or correction...) When possible be specific @ -No Did you speak to anyone other than the patient for history (EMS, parent, family, police, friend...)? What history was obtained from this source @ -No Did you review nursing and triage notes (agree or disagree)? Why? @ -I reviewed and agree with nursing and triage notes Were old charts reviewed (outside hosp., previous admission, EMS record, old EKG, old radiological studies, urgent care reports/EKG's, correction records)? Report findings @ -No old charts were reviewed Differential Diagnosis (chest pain, altered mental status, abdominal pain women, abdominal pain men, vaginal bleeding, weakness, fever, dyspnea, syncope, headache, dizziness, GI bleed, back pain, seizure, CVA, palpatations, mental health, musculoskeletal)? @ -Differential Syncope: Valvular disease, hypertrophic cardiomyopathy, pulmonary embolism, tamponade, tachycardia, bradycardia, LA, hypovolemia, hemorrhage, dissection, anemia, intracranial hemorrhage, seizure, hypoglycemia, carbon monoxide poisoning, this is not meant to be an all-inclusive list. EKG interpreted by me (3pts min.). @ -As above X-rays interpreted by me (1pt min.). @ -None done CT interpreted by me (1pt min.). @ -None done U/S interpreted by me (1pt. min.). @ -None done What testing was considered but not performed or refused? (CT, X-rays, U/S, labs)? Why? @ -Considered imaging however patient has had similar symptoms multiple times previously, daily What meds were considered but not given or refused? Why? @ -None Did you discuss the management of the patient with other professionals (professionals i.e. , PA, LINE TESTER, lab, RT, psych nurse, geriatric social worker, resin painter, teacher, international first officer, patient case coordinator)? Give summary @ -No Was smoking cessation discussed for >3mins.? @ -No Was critical care preformed (if so, how long)? @ -No Were there social determinants of health that impacted care today? How? (Homel essness, low income, unemployed, alcoholism, drug addiction, transportation, low edu. Level, literacy, decrease access to med. care, penitentiary, rehab)? @ -No Was there de-escalation of care discussed even if they declined (Discuss DNR or withdrawal of care, Hospice)? DNR status @ -No What co-morbidities impacted this encounter? (DM, HTN, Smoking, COPD, CAD, Cancer, CVA, ARF, Chemo, Hep., AIDS, mental health diagnosis, sleep apnea, morbid obesity)? @ -History of POTS syndrome. Was patient admitted / discharged? Hospital course, mention meds given and route, prescriptions, significant lab abnormalities, going to OR and other pertinent info. @ -Patient presents with syncopal episode however has these daily. Patient also has nausea and discomfort from her recent procedure. Patient reevaluated and resting comfortably in bed. Patient updated on results and need for follow- up. Patient specifically advised to have her liver enzymes rechecked in the near future Undiagnosed new problem with uncertain prognosis? @ -No Drug Therapy requiring intensive monitoring for toxicity (Heparin, Nitro, Insulin, Cardizem)? @ -No Were any procedures done? @ -No Diagnosis/symptom? @ -Nausea Acute, or Chronic, or Acute on Chronic? @ -Acute Uncomplicated (without systemic symptoms) or Complicated (systemic symptoms)? @ -Default Side effects of treatment? @ -No Exacerbation, Progression, or Severe Exacerbation? @ -No Poses a threat to life or bodily function? How? (Chest pain, USA, LA, pneumonia, PE, COPD, DKA, ARF, appy, cholecystitis, CVA, Diverticulitis, Homicidal, Suicidal, threat to staff... and all critical care pts) @ -No - Lab Data Result diagrams: 09/19/24 11:57 09/19/24 11:57 Lab Results 09/19/24 09/19/24 Range/Units 11:57 11:57 WBC 11.6 H (3.8-10.6) k/uL RBC 3.16 L (3.80-5.40) m/uL Hgb 10.4 L (11.4-16.0) gm/dL Hct 31.2 L (34.0-46.0) % MCV 98.7 (80.0-100.0) fL MCH 33.0 (25.0-35.0) pg MCHC 33.4 (31.0-37.0) g/dL RDW 12.5 (11.5-15.5) % Plt Count 146 L (150-450) k/uL MPV 8.6 Neutrophils % 79 % Lymphocytes % 8 % Monocytes % 11 % Eosinophils % 0 % Basophils % 0 % Neutrophils # 9.1 H (1.3-7.7) k/uL Lymphocytes # 1.0 (1.0-4.8) k/uL Monocytes # 1.3 H (0-1.0) k/uL Eosinophils # 0.0 (0-0.7) k/uL Basophils # 0.0 (0-0.2) k/uL Sodium 139 (137-145) mmol/L Potassium 3.9 (3.5-5.1) mmol/L Chloride 108 H (98-107) mmol/L Carbon Dioxide 24 (22-30) mmol/L Anion Gap 7 mmol/L BUN 5 L (7-17) mg/dL Creatinine 0.68 (0.52-1.04) mg/dL Est GFR (CKD-EPI)AfAm >90 (>60 ml/min/1.73 sqM) Est GFR (CKD-EPI)NonAf >90 (>60 ml/min/1.73 sqM) Glucose 87 (74-99) mg/dL Calcium 8.1 L (8.4-10.2) mg/dL Total Bilirubin 3.4 H (0.2-1.3) mg/dL AST 70 H (14-36) U/L ALT 172 H (4-34) U/L Alkaline Phosphatase 111 (38-126) U/L Total Protein 5.5 L (6.3-8.2) g/dL Albumin 3.4 L (3.5-5.0) g/dL Disposition Clinical Impression: Nausea Disposition: HOME SELF-CARE Condition: Stable Instructions (If sedation given, give patient instructions): Acute Nausea and Vomiting (ED) Additional Instructions: Please do follow-up with your primary care physician Friday. Have your primary care physician recheck liver enzymes. Return for uncontrolled nausea vomiting, pain, passing out, worsening or changing symptoms or other concerns. Is patient prescribed a controlled substance at d/c from ED?: No Referrals: Claudia Wills MD [Primary Care Provider] - 1-2 days Time of Disposition: 12:57
[2024-09-19] MEDS: MORPHINE SULFATE 2 MG/ML SYRINGE IVP STA (12:09)
[2024-09-19] MEDS: SODIUM CHLORIDE 0.9% 500 ML 500 ML IV STA (12:09)
[2024-09-19 12:10] LABS: Basophils % (A) 0 %; Eosinophils % (A) 0 %; HCT 31.2 % (34.0-46.0); HGB 10.4 gm/dL (11.4-16.0); Lymphocytes % (A) 8 %; MCHC 33.4 g/dL (31.0-37.0); MCV 98.7 fL (80.0-100.0); Mean Platelet Volume 8.6; Monocytes # (A) 1.3 k/uL (0-1.0); Monocytes % (A) 11 %; Neutrophils # (A) 9.1 k/uL (1.3-7.7); Neutrophils % (A) 79 %; Platelet Count 146 k/uL (150-450); RBC 3.16 m/uL (3.80-5.40); RDW 12.5 % (11.5-15.5); WBC 11.6 k/uL (3.8-10.6)
[2024-09-19 12:20] LABS: ALT 172 U/L (4-34); AST 70 U/L (14-36); African American GFR (CKD) >90 (>60 ml/min/1.73 sqM); Albumin 3.4 g/dL (3.5-5.0); Alkaline Phosphatase 111 U/L (38-126); Anion Gap 7 mmol/L; Blood Urea Nitrogen 5 mg/dL (7-17); Calcium 8.1 mg/dL (8.4-10.2); Carbon Dioxide 24 mmol/L (22-30); Chloride 108 mmol/L (98-107); Glucose 87 mg/dL (74-99); Non-African American GFR(CKD) >90 (>60 ml/min/1.73 sqM); Potassium 3.9 mmol/L (3.5-5.1); Sodium 139 mmol/L (137-145); Total Bilirubin 3.4 mg/dL (0.2-1.3); Total Protein 5.5 g/dL (6.3-8.2)
== END 2024-09-19 13:16 | disposition home or self-care (01) ==
LOC: EC 11:17
DX: R11.2 Nausea with vomiting, unspecified (principal); G90.A Postural orthostatic tachycardia syndrome [POTS]; Z91.018 Allergy to other foods; Z91.040 Latex allergy status; Z88.8 Allergy status to other drugs, medicaments and biological substances; Z91.012 Allergy to eggs; Z91.011 Allergy to milk products
CPT/HCPCS: 36415; 93005; 80053; 85025; 99284; 96374; 96361; J2270

== ENCOUNTER 2024-10-14 10:29 | Emergency (ER) | payer OTHER ==
[2024-10-14 10:37] VITALS: TEMP 98.5
--- NOTE | 2024-10-14 10:55 | ED ---
Dizziness HPI - General Stated Complaint: Abn Labs Time Seen by Provider: 10/14/24 10:54 Source: patient, RN notes reviewed, old records reviewed Mode of arrival: wheelchair Limitations: no limitations - History of Present Illness Initial Comments: 23-year-old female with a past medical history significant of optic neuritis, POTS, hypotension and migraines presenting to the ER for syncopal episode. Patient was in infusion center this morning as she was scheduled to receive IV s teroids for optic neuritis treatment when she had a syncopal episode. Her last treatment was on Friday. Patient was sent here for evaluation. Patient is also complaining of mild dizziness and a headache. She states this feels similar to previous migraines. She also states syncopal episode feels like a POTS episode. She has followed up with cardiology, Dr. Salguero. Patient reports she took prescribed midodrine this am. Patient denies any fevers, chills, nausea, vomiting, chest pain, shortness of breath, abdominal pain, constipation/diarrhea, urinary complaints or peripheral edema. - Related Data Home Medications Medication Instructions Recorded Confirmed Folic Acid 1 mg PO DAILY 06/05/23 10/14/24 diphenhydrAMINE HCL [Benadryl 25 - 50 mg PO DAILY PRN 06/05/23 10/14/24 Allergy] Midodrine [ProAmatine] 5 mg PO TID 10/12/24 10/14/24 Cyanocobalamin (Vitamin B-12) 1,000 mcg PO DAILY 10/14/24 10/14/24 [Vitamin B-12] EPINEPHrine (Auto Inject) [Epipen] 0.3 mg IM ONCE PRN 10/14/24 10/14/24 Metoprolol Succinate (ER) [Toprol 25 mg PO DAILY 10/14/24 10/14/24 Xl] Allergies Allergy/AdvReac Type Severity Reaction Status Date / Time albuterol Allergy Itching Verified 10/14/24 12:31 apple Allergy Itching Verified 10/14/24 12:31 azithromycin Allergy Itching Verified 10/14/24 12:31 blue dye Allergy Itching Verified 10/14/24 12:31 broccoli Allergy Itching Verified 10/14/24 12:31 butalbital Allergy Itching Verified 10/14/24 12:31 cetirizine [From Zyrte] Allergy Rash/Hives Verified 10/14/24 12:31 roldan Allergy Swelling Verified 10/14/24 12:31 roldan flavor Allergy Swelling Verified 10/14/24 12:31 chicken derived [Chicken] Allergy Itching Verified 10/14/24 12:31 egg Allergy Swelling Verified 10/14/24 12:31 escitalopram [From Lexapro] Allergy Rash/Hives Verified 10/14/24 12:31 fexofenadine [From Sparkle] Allergy Rash/Hives Verified 10/14/24 12:31 fludrocortisone Allergy Swelling Verified 10/14/24 12:31 gluten Allergy Nausea & Verified 10/14/24 12:31 Vomiting & Diarrhea green kaur Allergy Itching Verified 10/14/24 12:31 lactose Allergy Swelling Verified 10/14/24 12:31 latex Allergy Rash/Hives Verified 10/14/24 12:31 loratadine [From Claritin] Allergy Rash/Hives Verified 10/14/24 12:31 mold Allergy Wheezing Verified 10/14/24 12:31 orange Allergy Swelling Verified 10/14/24 12:31 orange juice [[place]] Allergy Swelling Verified 10/14/24 12:31 Penicillins Allergy Unknown Verified 10/14/24 12:31 Pepper Allergy Anaphylaxis Verified 10/14/24 12:31 pineapple Allergy Swelling Verified 10/14/24 12:31 red dye Allergy Swelling Verified 10/14/24 12:31 rice Allergy Anaphylaxis Verified 10/14/24 12:31 soy Allergy Swelling Verified 10/14/24 12:31 sunflower oil Allergy Itching Verified 10/14/24 12:31 venlafaxine [From Effexor] Allergy Rash/Hives Verified 10/14/24 12:31 Review of Systems ROS Statement: Those systems with pertinent positive or pertinent negative responses have been documented in the HPI. ROS Other: All systems not noted in ROS Statement are negative. Past Medical History Past Medical History: No Reported History Additional Past Medical History / Comment(s): mulitple food and environmental allergies, YEAGER, chronic migranes.COVID. hypotension History of Any Multi-Drug Resistant Organisms: None Reported Past Surgical History: No Surgical Hx Reported Past Anesthesia/Blood Transfusion Reactions: No Reported Reaction Past Psychological History: Anxiety, Depression Smoking Status: Never smoker General Exam Limitations: no limitations General appearance: alert, in no apparent distress Head exam: Present: atraumatic, normocephalic, normal inspection Eye exam: Present: normal appearance, PERRL, EOMI. Absent: scleral icterus, conjunctival injection, periorbital swelling Pupils: Present: normal accommodation ENT exam: Present: normal exam, normal oropharynx, mucous membranes moist, TM's normal bilaterally Respiratory exam: Present: normal lung sounds bilaterally. Absent: respiratory distress, wheezes, rales, rhonchi, stridor Cardiovascular Exam: Present: regular rate, normal rhythm, normal heart sounds. Absent: systolic murmur, diastolic murmur, rubs, gallop, clicks Neurological exam: Present: alert, oriented X3, CN II-XII intact Skin exam: Present: warm, dry, intact, normal color. Absent: rash Course Vital Signs 10/14/24 10/14/24 10:33 12:40 Temperature 98.5 F Pulse Rate 69 62 Respiratory 20 16 Rate Blood Pressure 126/85 111/75 O2 Sat by Pulse 99 98 Oximetry EKG Findings - EKG Comments: EKG Findings:: EKG taken at 10: 47 showing a sinus rhythm. No acute ST segment or T wave abnormalities. Normal axis. Ventricular rate 67, NE interval 107, QRS duration 87, QT/QTc 371/386 Medical Decision Making - Medical Decision Making Was pt. sent in by a medical professional or institution (TALYA Holder, MANAGER OF LOSS PREVENTION OPERATIONS, urgent care, hospital, or penitentiary...) When possible be specific @ -Patient sent by infusion center as patient had syncopal episode. Did you speak to anyone other than the patient for history (EMS, parent, family, police, friend...)? What history was obtained from this source @ -No Did you review nursing and triage notes (agree or disagree)? Why? @ -I reviewed and agree with nursing and triage notes Were old charts reviewed (outside hosp., previous admission, EMS record, old EKG, old radiological studies, urgent care reports/EKG's, penitentiary records)? Report findings @ -No old charts were reviewed Differential Diagnosis (chest pain, altered mental status, abdominal pain women, abdominal pain men, vaginal bleeding, weakness, fever, dyspnea, syncope, headache, dizziness, GI bleed, back pain, seizure, CVA, palpatations, mental health, musculoskeletal)? @ -Differential Syncope:Valvular disease, hypertrophic cardiomyopathy, pulmonary embolism, tamponade, tachycardia, bradycardia, VA, hypovolemia, hemorrhage, dissection, anemia, intracranial hemorrhage, seizure, hypoglycemia, carbon monoxide poisoning, this is not meant to be an all-inclusive list. EKG interpreted by me (3pts min.). @ -As above X-rays interpreted by me (1pt min.). @ -None done CT interpreted by me (1pt min.). @ -None done U/S interpreted by me (1pt. min.). @ -None done What testing was considered but not performed or refused? (CT, X-rays, U/S, labs)? Why? @ -None What meds were considered but not given or refused? Why? @ -Patient refused Tylenol Did you discuss the management of the patient with other professionals (prof franklin i.e. , PA, MANAGER OF LOSS PREVENTION OPERATIONS, lab, RT, psych nurse, clinical social worker, plastic mixer, teacher, low altitude air defense officer, case management manager)? Give summary @ -No Was smoking cessation discussed for >3mins.? @ -No Was critical care preformed (if so, how long)? @ -No Were there social determinants of health that impacted care today? How? (Homelessness, low income, unemployed, alcoholism, drug addiction, transportation, low edu. Level, literacy, decrease access to med. care, fpc, rehab)? @ -No Was there de-escalation of care discussed even if they declined (Discuss DNR or withdrawal of care, Hospice)? DNR status @ -No What co-morbidities impacted this encounter? (DM, HTN, Smoking, COPD, CAD, Cancer, CVA, ARF, Chemo, Hep., AIDS, mental health diagnosis, sleep apnea, morbid obesity)? @ -POTS, chronic migraines, optic neuritis Was patient admitted / discharged? Hospital course, mention meds given and route, prescriptions, significant lab abnormalities, going to OR and other pertinent info. @ -Discharged. 23-year-old female presented to the ER for evaluation of syncope. Patient is currently undergoing IV steroid infusions for optic neuritis. While at infusion center today she had an episode of syncope. Patient does report a history of POTS. Upon evaluation, patient in no signs of acute distress and vitals stable. Laboratory studies showing a leukocytosis of 24.2 with a left shift and transaminitis total bilirubin 1.5, AST 98, ALT 323 which is likely due to steroid infusions. EKG showing normal sinus rhythm. No evidence of infarct or ischemia. As patient reported headache which feels s imilar to chronic migraines, IV fluids, Zofran and Toradol given in the ER. Upon reevaluation, patient resting comfortably in bed no signs acute distress. Results close with patient, all questions answered. Patient refused Tylenol. Patient states she is feeling better and would like to be discharged. Patient is stable for discharge with outpatient follow-up. Strict return parameters discussed. Patient discharged in stable condition with follow-up to PCP. Patient verbally expressed understanding and agreement with care plan. Case discussed with ED attending, Dr. Mobley. Undiagnosed new problem with uncertain prognosis? @ -No Drug Therapy requiring intensive monitoring for toxicity (Heparin, Nitro, Insulin, Cardizem)? @ -No Were any procedures done? @ -No Diagnosis/symptom? @ -Syncope/headache Acute, or Chronic, or Acute on Chronic? @ -Acute Uncomplicated (without systemic symptoms) or Complicated (systemic symptoms)? @ -Uncomplicated Side effects of treatment? @ -No Exacerbation, Progression, or Severe Exacerbation? @ -No Poses a threat to life or bodily function? How? (Chest pain, USA, VA, pneumonia, PE, COPD, DKA, ARF, appy, cholecystitis, CVA, Diverticulitis, Homicidal, Suicidal, threat to staff... and all critical care pts) @ -No - Lab Data Result diagrams: 10/14/24 11:07 10/14/24 11:07 Lab Results 10/14/24 10/14/24 Range/Units 11:07 11:07 WBC 24.2 H (3.8-10.6) k/uL RBC 3.54 L (3.80-5.40) m/uL Hgb 11.6 (11.4-16.0) gm/dL Hct 35.0 (34.0-46.0) % MCV 98.7 (80.0-100.0) fL MCH 32.8 (25.0-35.0) pg MCHC 33.2 (31.0-37.0) g/dL RDW 13.5 (11.5-15.5) % Plt Count 257 (150-450) k/uL MPV 9.1 Neutrophils % 82 % Lymphocytes % 10 % Monocytes % 7 % Eosinophils % 0 % Basophils % 0 % Neutrophils # 19.9 H (1.3-7.7) k/uL Lymphocytes # 2.4 (1.0-4.8) k/uL Monocytes # 1.6 H (0-1.0) k/uL Eosinophils # 0.0 (0-0.7) k/uL Basophils # 0.0 (0-0.2) k/uL Sodium 133 L (137-145) mmol/L Potassium 3.8 (3.5-5.1) mmol/L Chloride 102 (98-107) mmol/L Carbon Dioxide 26 (22-30) mmol/L Anion Gap 5 mmol/L BUN 9 (7-17) mg/dL Creatinine 0.79 (0.52-1.04) mg/dL Est GFR (CKD-EPI)AfAm >90 (>60 ml/min/1.73 sqM) Est GFR (CKD-EPI)NonAf >90 (>60 ml/min/1.73 sqM) Glucose 89 (74-99) mg/dL Calcium 9.6 (8.4-10.2) mg/dL Total Bilirubin 1.5 H (0.2-1.3) mg/dL AST 98 H (14-36) U/L ALT 323 H (4-34) U/L Alkaline Phosphatase 89 (38-126) U/L Total Protein 6.8 (6.3-8.2) g/dL Albumin 4.5 (3.5-5.0) g/dL Disposition Clinical Impression: Syncope, Headache Disposition: HOME SELF-CARE Condition: Stable Instructions (If sedation given, give patient instructions): Syncope (ED) Additional Instructions: Follow-up with PCP in the next 1-2 days. Return to the ER for any new or worsening symptoms. Is patient prescribed a controlled substance at d/c from ED?: No Referrals: Claudia Wills MD [Primary Care Provider] - 1-2 days Time of Disposition: 12:26
[2024-10-14] MEDS: KETOROLAC 15 MG/ML 1 ML VIAL IVP STA (11:05)
[2024-10-14] MEDS: SODIUM CHLORIDE 0.9% 1,000 ML IV STA (11:05)
[2024-10-14 11:11] LABS: Basophils % (A) 0 %; Eosinophils % (A) 0 %; HGB 11.6 gm/dL (11.4-16.0); Lymphocytes # (A) 2.4 k/uL (1.0-4.8); Lymphocytes % (A) 10 %; MCH 32.8 pg (25.0-35.0); MCHC 33.2 g/dL (31.0-37.0); MCV 98.7 fL (80.0-100.0); Mean Platelet Volume 9.1; Monocytes # (A) 1.6 k/uL (0-1.0); Monocytes % (A) 7 %; Neutrophils # (A) 19.9 k/uL (1.3-7.7); Neutrophils % (A) 82 %; Platelet Count 257 k/uL (150-450); RBC 3.54 m/uL (3.80-5.40); RDW 13.5 % (11.5-15.5); WBC 24.2 k/uL (3.8-10.6)
[2024-10-14] MEDS: ONDANSETRON 4 MG/2 ML VIAL IVP STA (11:19)
[2024-10-14] MEDS: METOCLOPRAMIDE 5 MG/ML 2 ML VIAL IVP STA (11:19)
[2024-10-14 11:21] LABS: ALT 323 U/L (4-34); AST 98 U/L (14-36); African American GFR (CKD) >90 (>60 ml/min/1.73 sqM); Albumin 4.5 g/dL (3.5-5.0); Alkaline Phosphatase 89 U/L (38-126); Anion Gap 5 mmol/L; Blood Urea Nitrogen 9 mg/dL (7-17); Calcium 9.6 mg/dL (8.4-10.2); Carbon Dioxide 26 mmol/L (22-30); Chloride 102 mmol/L (98-107); Glucose 89 mg/dL (74-99); Non-African American GFR(CKD) >90 (>60 ml/min/1.73 sqM); Potassium 3.8 mmol/L (3.5-5.1); Sodium 133 mmol/L (137-145); Total Bilirubin 1.5 mg/dL (0.2-1.3); Total Protein 6.8 g/dL (6.3-8.2)
[2024-10-14] MEDS: ACETAMINOPHEN TAB 325 MG TAB PO STA (12:03)
[2024-10-14 12:54] VITALS: BP 111/75; PULSE 62; RESP 16
== END 2024-10-14 12:40 | disposition home or self-care (01) ==
LOC: EC 10:29
DX: R55 Syncope and collapse (principal); G43.909 Migraine, unspecified, not intractable, without status migrainosus; G90.A Postural orthostatic tachycardia syndrome [POTS]; Z91.040 Latex allergy status; Z91.018 Allergy to other foods; Z91.012 Allergy to eggs; Z88.0 Allergy status to penicillin; Z88.8 Allergy status to other drugs, medicaments and biological substances; Z91.041 Radiographic dye allergy status; Z88.1 Allergy status to other antibiotic agents
CPT/HCPCS: 36415; 93005; 80053; 85025; 99283; J2405; J1885